=== PATIENT | female | born 1950 | race Caucasian/White ===

== ENCOUNTER 2020-07-25 14:53 | Emergency (ER) | payer MEDICARE ==
[~2020-07-25] VITALS: Ht 167.6 cm; Wt 75.8 kg
[2020-07-25] MEDS ORDERED: LIPITOR10 MG PO (15:08)
[2020-07-25] MEDS ORDERED: LISINOPRIL5 MG PO (15:08)
[2020-07-25] MEDS ORDERED: ASA81BEC PO (15:09)
[2020-07-25] MEDS ORDERED: IBUPROFEN 600600 M1 PO (18:23)
[2020-07-25] MEDS ORDERED: NORCO5 PO (18:23)
[2020-07-25] MEDS ORDERED: CEPHALEXIN500 MG PO ×2 (18:23→18:24)
[2020-07-25 18:40] VITALS: BP 185/81
== END 2020-07-25 18:41 | disposition home or self-care (01) ==
LOC: M.ERS 14:53
DX: S92.425B Nondisplaced fracture of distal phalanx of left great toe, initial encounter for open fracture (principal); I10 Essential (primary) hypertension; Z79.899 Other long term (current) drug therapy; Z79.82 Long term (current) use of aspirin; W22.8XXA Striking against or struck by other objects, initial encounter; Y93.89 Activity, other specified; Y92.89 Other specified places as the place of occurrence of the external cause; Y99.8 Other external cause status